=== PATIENT | male | born 1955 ===

== ENCOUNTER 2018-02-01 05:48 | Inpatient (IN) | payer OTHER ==
[~2018-02-01] VITALS: Ht 175.3 cm; Wt 90.7 kg
[2018-02-01] VITALS (11 sets, daily range): BP systolic 113–143; BP diastolic 65–88
[2018-02-01] MEDS ORDERED: Midazolam 2mg/2ml Inj ONE (06:11)
[2018-02-01] MEDS ORDERED: fentaNYL 100 mcg/2 mL IV ONE (06:11)
[2018-02-01] MEDS ORDERED: Propofol 200mg/20ml IV ONE (06:31)
[2018-02-01] MEDS ORDERED: Lidocaine 1% MPF 10mg/ml 5ml ONE ×2 (06:31→08:02)
[2018-02-01] MEDS ORDERED: Ropivacaine 5mg/ml Vial 30ml INJ ONE (06:36)
[2018-02-01] MEDS ORDERED: NKM (06:42)
[2018-02-01] MEDS ORDERED: Bacitracin 50000 Units Vial ONE ×2 (06:42→10:17)
[2018-02-01] MEDS ORDERED: NeoSporin Gu Irrig 1ml Amp IRRIG ONE ×2 (06:42→10:17)
--- NOTE | 2018-02-01 07:12 | Pre-Procedure Note/Attestation ---
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 I attest that, if there was a reasonable possibility of needing a blood transfusion, the patient (or the patient's legal unit support representative) was given the [facility] standardized written summary, pursuant to the [employer] Blood Safety Act ([place] Health and Safety Code # 1645, as amended). I attest that I re-evaluated the patient just prior to the surgery and that there has been no change in the patient's H&P, except as documented below: Jeffery Toney MD Feb 01, 2018 07:12
[2018-02-01] MEDS ORDERED: Ketorolac 30mg Inj ONE (07:30)
[2018-02-01] MEDS ORDERED: LR 1000ml ONE (07:30)
--- NOTE | 2018-02-01 07:39 | Brief Operative Note ---
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
[2018-02-01] MEDS ORDERED: Sodium Chloride 10ml vial INJ ONE (08:02)
--- NOTE | 2018-02-01 08:26 | Anethesia Preoperative Eval ---
Anesthesia Pre-op PMH/ROS General Date of Evaluation: Feb 01, 2018 Time of Evaluation: 06:50 Anesthesiologist: David ASA Score: ASA 2 Mallampati Score Class I : Soft palate, uvula, fauces, pillars visible Class II: Soft palate, uvula, fauces visible Class III: Soft palate, base of uvula visible Class IV: Only hard plate visible Mallampati Classification: Class II Surgeon: Feng Diagnosis: L knee DJD Surgical Procedure: L knee arthroplasty Anesthesia History: none Family History: no anesthesia problems Allergies: Coded Allergies: No Known Allergies (Unverified , 02/01/18) Medications: see eMAR Past Medical History Cardiovascular: Denies: HTN, CAD, ND, valve dz, arrhythmia, other Pulmonary: Denies: asthma, COPD, OTILIA, other Gastrointestinal/Genitourinary: Reports: GERD - mild; Denies: CRI, ESRD, other Neurologic/Psychiatric: Reports: other - chronic pain; Denies: dementia, CVA, depression/anxiety, TIA Endocrine: Denies: DM, hypothyroidism, steroids, other HEENT: Denies: cataract (L), cataract (R), glaucoma, LITTLE SHELL TRIBE (L), LITTLE SHELL TRIBE (R), other Hematology/Immune: Denies: anemia, DVT, bleeding disorder, other Musculoskeletal/Integumentary: Reports: DJD; Denies: OA, RA, DDD, edema, other Other: other - overweight PMH Narrative: as above PSxH Narrative: L knee arthroscopy Anesthesia Pre-op Phys. Exam Physician Exam Last Vital Signs Date Time Temp Pulse Resp B/P (MAP) Pulse Ox O2 Delivery O2 Flow Rate FiO2 02/01/18 06:44 Room Air 02/01/18 06:32 98.6 74 18 126/84 (98) 94 98.6 Constitutional: NAD Neurologic: CN 2-12 intact Cardiovascular: RRR, no M/R/G Respiratory: CTA Gastrointestinal: S/NT/ND Airway Exam Mallampati Score: Class II MO: limited Neck: short ROM: limited Teeth: missing Dentures: no upper, no lower Anesthesia Pre-op A/P Labs see chart Studies Pre-op Studies: EKG - NSR Risk Assessment & Plan Assessment: ASA 2 Plan: SAB vs GA with combined femoral/saphenous nerve block for postoperative pain control Status Change Before Surgery: No Pre-Antibiotics Drug: Ancef 2 gr. Given Within 1 Hr of Incision: Yes Time Given: 08:12 Meek Hernandez MD Feb 01, 2018 08:26
[2018-02-01] MEDS: oxyCONTIN 20mg tab ORAL SCH ×2 (09:00→20:36)
[2018-02-01] MEDS ORDERED: LR 1000ml 1,000 ML IVLG SCH (09:53)
[2018-02-01] MEDS ORDERED: Midazolam 2mg/2ml Inj IVP PRN (10:00)
[2018-02-01] MEDS ORDERED: fentaNYL 100 mcg/2 mL IV PRN (10:00)
[2018-02-01] MEDS ORDERED: Meperidine 50mg/ml Inj(FOR RIGORS ONLY) IV PRN (10:00)
[2018-02-01] MEDS ORDERED: DiphenhydrAMINE 50mg/ml Inj IVP PRN (10:00)
[2018-02-01] MEDS ORDERED: Ketorolac 30mg Inj IV PRN (10:00)
--- NOTE | 2018-02-01 11:42 | Immediate Post-Op Evaluation ---
Immediate Post-Op Evalulation Immediate Post-Op Evalulation Procedure: L Total knee arthroplasty Date of Evaluation: Feb 01, 2018 Time of Evaluation: 11:41 IV Fluids: 1700 Blood Products: none Estimated Blood Loss: 150 Urinary Output: 300 Blood Pressure Systolic: 124 Blood Pressure Diastolic: 86 Pulse Rate: 75 Respiratory Rate: 22 O2 Sat by Pulse Oximetry: 98 Temperature (Fahrenheit): 97.8 Pain Score (1-10): 2 Nausea: No Vomiting: No Complications none Patient Status: reacts, none Hydration Status: adequate Meek Hernandez MD Feb 01, 2018 11:42
--- NOTE | 2018-02-01 11:49 | Operative Note - PDOC ---
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
--- NOTE | 2018-02-01 13:50 | Consultation ---
History of Present Illness General Date patient seen: Feb 01, 2018 Time patient seen: 13:48 Chief Complaint: this is an initial internalmediciane conuslt request by Dr gutierrez. Present Illness Allergies: Coded Allergies: No Known Allergies (Unverified , 02/01/18) Medication History Scheduled No Known Medications* (NKM - No Known Medications*), 0 ., (Reported) Patient History Limited by: other - daought by bed side and the history taken withher help Healthcare decision maker miki castillo() Resuscitation status Full Code Advanced Directive on File No Review of Systems Constitutional: Reports: no symptoms Eye: Reports: no symptoms ENT: Reports: no symptoms Respiratory: Reports: no symptoms Gastrointestinal: Reports: no symptoms Musculoskeletal: Reports: other - has pain Physical Exam General Appearance: WD/WN HEENT: PERRL Neck: other - no jvd Respiratory/Chest: chest wall non-tender Cardiovascular/Chest: normal rate, regular rhythm Abdomen: non tender, soft Extremities: other - drain in place Last 24 Hour Vital Signs Date Time Temp Pulse Resp B/P (MAP) Pulse Ox O2 Delivery O2 Flow Rate FiO2 02/01/18 13:10 97.2 77 20 113/86 98 Nasal Cannula 3 97.2 02/01/18 12:45 74 20 113/86 98 Nasal Cannula 3 02/01/18 12:25 71 20 143/88 98 Simple Mask 8 02/01/18 12:25 97.4 02/01/18 12:00 71 20 135/79 98 Simple Mask 8 02/01/18 11:42 82 20 133/83 98 Simple Mask 8 02/01/18 11:42 208.0 75 22 98 02/01/18 11:37 80 20 124/88 98 Simple Mask 8 02/01/18 11:32 97.4 82 20 136/86 98 Simple Mask 8 97.4 02/01/18 06:44 Room Air 02/01/18 06:32 98.6 74 18 126/84 (98) 94 98.6 Intake and Output 01/31/18 02/01/18 19:00 07:00 # Voids 1 Height (Feet): 5 Height (Inches): 9.00 Weight (Pounds): 200 Medications Current Medications Medications (Trade) Dose Ordered Sig/Anthony Route PRN Reason Start Time Stop Time Status Last Admin Dose Admin Acetaminophen (Tylenol) 650 mg EVERY 6 HOURS PRN ORAL Mild Pain/Temp > 100.5 02/01/18 07:45 03/03/18 07:44 UNV Acetaminophen/ Hydrocodone Bitart (Quentin 5/325) 1 tab Q4H PRN ORAL For Pain 02/01/18 07:45 02/08/18 07:44 UNV Cefazolin Sodium 1 gm/Dextrose 55 ml @ 110 mls/hr EVERY 8 HOURS IV 02/01/18 14:00 02/02/18 06:29 UNV Celecoxib (CeleBREX) 200 mg DAILY ORAL 02/01/18 09:00 03/03/18 08:59 UNV Dextrose/Sodium Chloride 1,000 ml @ 75 mls/hr Q13H IV 02/01/18 07:45 03/03/18 07:44 UNV Diphenhydramine HCl (Benadryl) 25 mg Q15M PRN IVP Itching 02/01/18 10:00 02/01/18 18:00 Docusate Sodium (Colace) 100 mg THREE TIMES A DAY ORAL 02/01/18 09:00 03/03/18 08:59 UNV Enoxaparin Sodium (Lovenox) 30 mg EVERY 12 HOURS SUBQ 02/02/18 09:00 02/16/18 08:59 UNV Fentanyl Citrate (Sublimaze 100 mcg/2 mL) 50 mcg Q10M PRN IV Moderate Pain (Pain Scale 4-6) 02/01/18 10:00 02/01/18 18:00 Hydromorphone HCl (Dilaudid) 0.5 mg Q4H PRN SUBQ Mild Pain (Pain Scale 1-3) 02/01/18 07:45 02/08/18 07:44 UNV Hydromorphone HCl (Dilaudid) 1 mg Q3H PRN SUBQ Moderate Pain (Pain Scale 4-6) 02/01/18 07:45 02/08/18 07:44 UNV Ketorolac Tromethamine (Toradol 30mg) 30 mg Q1H PRN IV Severe Breakthru Pain (>7) 02/01/18 10:00 02/01/18 18:00 Meperidine HCl (Demerol) 25 mg Q15M PRN IV chills 7/12/18 10:00 02/01/18 16:00 02/01/18 12:25 Midazolam HCl (Versed 2mg/2ml vial) 1 mg Q15M PRN IVP For Anxiety 02/01/18 10:00 02/01/18 18:00 Ondansetron HCl (Zofran) 4 mg Q1H PRN IVP Nausea & Vomiting 02/01/18 10:00 02/01/18 18:00 Ondansetron HCl (Zofran) 4 mg Q6H PRN IVP Nausea & Vomiting 02/01/18 07:45 03/03/18 07:44 UNV Oxycodone HCl (OxyCONTIN) 20 mg EVERY 12 HOURS ORAL 02/01/18 09:00 02/08/18 08:59 UNV Temazepam (Restoril) 7.5 mg HSPRN PRN ORAL Insomnia 02/01/18 07:45 02/08/18 07:44 UNV Assessment/Plan Status Narrative s/p left tota knee arthroplasty pt ot dvt prophyalxis pain control follow labs monitor cbc paincontrol perioperative antibioti cprophyalxis.per surgeon. Wander Nunez MD Feb 01, 2018 13:50
[2018-02-01] MEDS ORDERED: Hydromorphone 0.5mg/0.5ml inj SUBQ PRN (15:00)
[2018-02-01] MEDS: D5 1/2NS 1,000 ML IV SCH (16:36)
[2018-02-01] MEDS: ceFAZolin sod 1 GM in D5W 110 ML IV SCH (16:36)
[2018-02-01] MEDS: HYDROmorphone 1mg/ml Carpuject SUBQ PRN (16:42)
[2018-02-01] MEDS: Docusate 100mg cap ORAL SCH (16:45)
[2018-02-01] MEDS: Enoxaparin 30mg Inj SUBQ SCH (20:40)
[2018-02-01] MEDS: Norco 5mg/325mg tab ORAL PRN (23:16)
[2018-02-02] VITALS: BP 106/69
[2018-02-02] MEDS: ceFAZolin sod 1 GM in D5W 110 ML IV SCH ×2 (00:08→08:41)
[2018-02-02 04:00] VITALS: BP_SYST 128; BP_SYST 188; BP_DIAS 68; BP_DIAS 70
[2018-02-02] MEDS: Norco 5mg/325mg tab ORAL PRN ×4 (04:10→18:06)
[2018-02-02] MEDS: D5 1/2NS 1,000 ML IV SCH ×2 (04:11→17:00)
[2018-02-02] MEDS: HYDROmorphone 1mg/ml Carpuject SUBQ PRN (05:43)
[2018-02-02 06:55] LABS: BASOPHILS % (AUTO) 0.5 % (0.0-2.0); EOSINOPHILS % (AUTO) 2.2 % (0.0-3.0); HEMATOCRIT 35.6 % (42.0-52.0); HEMOGLOBIN 11.8 G/DL (14.2-18.0); MEAN CORPUSCULAR VOLUME 86 FL (80-99); MONOCYTES % (AUTO) 11.5 % (1.0-10.0); NEUTROPHILS % (AUTO) 64.9 % (45.0-75.0); PLATELET COUNT 157 K/UL (150-450); RED BLOOD COUNT 4.12 M/UL (4.70-6.10); RED CELL DISTRIBUTION WIDTH 12.5 % (11.6-14.8); WHITE BLOOD COUNT 7.8 K/UL (4.8-10.8)
[2018-02-02 08:00] VITALS: BP 128/78
[2018-02-02] MEDS: oxyCONTIN 20mg tab ORAL SCH ×2 (08:42→20:33)
[2018-02-02] MEDS: celeBREX 200mg Cap **SURGERY PATIENTS ONLY ORAL SCH (08:42)
[2018-02-02] MEDS: Docusate 100mg cap ORAL SCH ×3 (08:42→18:05)
[2018-02-02] MEDS: Enoxaparin 30mg Inj SUBQ SCH ×2 (09:35→20:35)
[2018-02-02 12:00] VITALS: BP 124/69
--- NOTE | 2018-02-02 13:45 | 48 Hour Post Anesthesia Eval ---
Post Anesthesia Evaluation Procedure: L Total knee arthroplasty Date of Evaluation: Feb 02, 2018 Time of Evaluation: 06:20 Blood Pressure Systolic: 128 0: 70 Pulse Rate: 86 Respiratory Rate: 20 Temperature (Fahrenheit): 98.3 O2 Sat by Pulse Oximetry: 96 Airway: patent Nausea: No Vomiting: No Pain Intensity: 0 Hydration Status: adequate Cardiopulmonary Status: at baseline Mental Status/LOC: patient returned to baseline Post-Anesthesia Complications: 0 Follow-up care needed: N/A - further care as per primary team Kina Faulkner MD Feb 02, 2018 13:45
[2018-02-02] MEDS ORDERED: Tubing IV Secondary IV ONE (14:08)
[2018-02-02] MEDS ORDERED: D5 1/2NS 1000ml IV ONE (14:08)
--- NOTE | 2018-02-02 15:33 | Orthopedic Progress Note ---
Orthopedic - Progress Note Subjective Symptoms: c/o post-op knee pain Additional Comments Pain controlled most of time with narcotics, pending Ice/cold unit Objective Vital Signs Last 24 Hour Vital Signs Date Time Temp Pulse Resp B/P (MAP) Pulse Ox O2 Delivery O2 Flow Rate FiO2 02/02/18 13:45 208.9 86 20 96 02/02/18 12:00 98.7 94 20 124/69 (87) 97 98.7 02/02/18 09:00 Room Air 02/02/18 08:00 99.0 95 20 128/78 (95) 96 99.0 02/02/18 06:13 99.0 02/02/18 05:43 99.0 02/02/18 05:09 99.0 02/02/18 04:10 99.0 02/02/18 04:00 98.3 86 20 128/70 (89) 96 98.3 02/02/18 00:00 99.0 82 18 106/69 (81) 95 99.0 02/01/18 23:16 99.5 02/01/18 21:15 Room Air 02/01/18 20:36 99.5 02/01/18 20:00 96.7 103 17 122/65 (84) 95 96.7 02/01/18 16:00 99.5 90 18 118/70 (86) 94 99.5 I&O Intake and Output 02/01/18 02/02/18 19:00 07:00 Intake Total 3060 ml 77473 ml Output Total 1575 ml 1450 ml Balance 1485 ml 88969 ml Intake Oral 800 ml 800 ml IV Total 2260 ml 94018 ml Output Urine Total 700 ml 1250 ml Drainage Total 725 ml 200 ml Estimated Blood Loss 150 ml Wound: dry, intact Drains: hemovac Neuro Status: normal Vascular Status: normal Assessment Post-op Diagnosis Same Procedure Performed Left Total Knee Arthroplasty Plan Plan: PT, d/c antibiotics, continue drain Additional Comments Patient requires closer monitoring of pain and use of ice more frequently Jeffery Toney MD Feb 02, 2018 15:33
[2018-02-02] MEDS ORDERED: HYDROmorphone 1mg/ml Carpuject IVP PRN (15:45)
[2018-02-02 16:00] VITALS: BP 126/80
[2018-02-02 20:00] VITALS: BP 131/85
--- NOTE | 2018-02-02 23:37 | General Progress Note ---
Assessment/Plan Status Narrative s/p totlaknee arthroplasty doing well pt ot dvt prophyalxis eating well dc iv fluid Assessment/Plan monitor levi occupational therpay physicla therpay will follow Subjective Date patient seen: Feb 02, 2018 Time patient seen: 23:36 Constitutional: Reports: no symptoms HEENT: Reports: no symptoms Cardiovascular: Reports: no symptoms Respiratory: Reports: no symptoms Allergies: Coded Allergies: No Known Allergies (Unverified , 02/01/18) Objective Last 24 Hour Vital Signs Date Time Temp Pulse Resp B/P (MAP) Pulse Ox O2 Delivery O2 Flow Rate FiO2 02/02/18 21:32 99.0 02/02/18 20:33 99.0 02/02/18 20:00 99.8 110 18 131/85 (100) 93 99.8 02/02/18 16:00 99.0 91 20 126/80 (95) 93 99.0 02/02/18 13:45 208.9 86 20 96 02/02/18 12:00 98.7 94 20 124/69 (87) 97 98.7 02/02/18 09:00 Room Air 02/02/18 08:00 99.0 95 20 128/78 (95) 96 99.0 02/02/18 06:13 99.0 02/02/18 05:43 99.0 02/02/18 05:09 99.0 02/02/18 04:10 99.0 02/02/18 04:00 98.3 86 20 128/70 (89) 96 98.3 02/02/18 00:00 99.0 82 18 106/69 (81) 95 99.0 Intake and Output 02/01/18 02/02/18 19:00 07:00 Intake Total 3060 ml 52855 ml Output Total 1575 ml 1450 ml Balance 1485 ml 62804 ml Intake Oral 800 ml 800 ml IV Total 2260 ml 67930 ml Output Urine Total 700 ml 1250 ml Drainage Total 725 ml 200 ml Estimated Blood Loss 150 ml Laboratory Tests 02/02/18 05:00: White Blood Count 7.8, Red Blood Count 4.12L, Hemoglobin 11.8L, Hematocrit 35.6L , Mean Corpuscular Volume 86, Mean Corpuscular Hemoglobin 28.5, Mean Corpuscular Hemoglobin Concent 33.0, Red Cell Distribution Width 12.5, Platelet Count 157, Mean Platelet Volume 6.8, Neutrophils (%) (Auto) 64.9, Lymphocytes (% ) (Auto) 21.0, Monocytes (%) (Auto) 11.5H, Eosinophils (%) (Auto) 2.2, Basophils (%) (Auto) 0.5 Height (Feet): 5 Height (Inches): 9.00 Weight (Pounds): 200 General Appearance: WD/WN EENT: PERRL/EOMI Neck: other - NO JVD Cardiovascular: normal rate, regular rhythm Respiratory/Chest: lungs clear Abdomen: non tender, soft Extremities: other - WRAPPED Wander Nunez MD Feb 02, 2018 23:37
[2018-02-03] VITALS: BP 131/84
[2018-02-03] MEDS: HYDROmorphone 1mg/ml Carpuject SUBQ PRN ×4 (01:21→21:26)
[2018-02-03 04:00] VITALS: BP 121/81
--- NOTE | 2018-02-03 04:01 | Operative Note - Dictated ---
DATE OF OPERATION: 02/01/2018 PREOPERATIVE DIAGNOSIS: Left knee end-stage arthrosis. POSTOPERATIVE DIAGNOSIS: Left knee end-stage arthrosis with a small extension lag. PROCEDURE: 1. Left total knee arthroplasty using a [employer] System (cruciate sacrificing: Size 7 femur, size 5 tibial tray, and 9 mm poly insert and 29 mm patella, all components were cemented. 2. Release of extension contracture. 3. Multi-layered wound closure measuring 22 cm. 4. Placement of nonbiodegradable implant SURGEON: Jeffery Toney M.D. LOCK CORNER MACHINE OPERATOR SURGEON: Shayne Fox M.D. ANESTHESIOLOGIST: Meek Hernandez M.D., spinal as well as obturator block. ESTIMATED BLOOD LOSS: Less than 50 mL. TOURNIQUET TIME: 120 minutes. DRAINS: Medium Hemovac x1. COMPLICATIONS: None. INDICATION FOR PROCEDURE: The patient is a 62-year-old male who sustained a work-related injury to his left knee. He failed conservative treatments including injections, physical therapy, etc. Due to continued pain and limitations in his activities of daily living, it was felt that he would be best served with total knee arthroplasty. The risks, benefits and alternatives to surgery were discussed with the patient. Risks including, but not limited to infection, nerve damage, limb loss, blood clots, stiffness, need for revision surgery, continued pain or worsening symptoms, etc., were reviewed. The patient did understand the risks and wished to proceed. OPERATIVE FINDINGS: Examination under anesthesia demonstrated Left knee range of motion: 5 to 110 degrees and the knee was stable with varus and valgus stress. However, there was a +1 Pablo test and +1 anterior drawer test, thus a total knee was indicated. Upon examination of the articular surface, there was severe damage to the medial compartment as well as areas of the Central lateral femoral condyle and grade 2 to 4 patellar trochlear groove. Thus, a total knee arthroplasty was the best option for the patient. At all times, neurovascular structures and the ligaments were protected. DESCRIPTION OF PROCEDURE: The patient was identified by himself in the preoperative area. The left lower extremity was marked as correct operative site. The patient was then taken down to the operating room and placed in supine position. The patient underwent adequate anesthesia as well as obturator block. He received 2 g of Ancef IV. Next, the left lower extremity was prepped and draped in the usual sterile fashion manner. Time-out was performed confirming the left lower extremity as the correct operative site. Next, a standard paramedian incision was made as well as arthrotomy. Next, the patella was then everted. The Intramedullary drill was used to allow for intramedullary femoral measurement guide and cutting jig. The distal femoral cutting block was pinned into correct position and distal femoral cut was then made. Next, the femoral sizing jig was placed on the distal femur and a size 7 was noted to be the best fit without notching or removing excess posterior femoral condylar bone. The size 7, 4 in 1, femoral cutting block was inserted and pinned into place. Next the anterior and posterior cuts and chamfer cuts were then made. A trial of 7 was placed on the femur and it fit well. Next, attention was turned to the patella where measured resection would allow for a 9 mm thickness poly patella. The diameter was then measured and it was noted that a 29mm patella was the best fit. Next, the patellar articular surface was resected to the appropriated depth. Once it was confirmed that the patella was flat and smooth, the 3 peg holes were then drilled and the trial patella was then placed. The patella was noted to track centrally within the femoral trial throughout the full ROM. Next, attention was then turned to the tibia where complete resection of ACL and PCL were performed as well as medial and lateral meniscus. Next the tibia was then been brought forward and the extramedullary cutting guide was then placed on the tibia, measuring approximately 9 mm off the less involved lateral side. Next, slope and varus and valgus alignment was checked and aligned. After confirmation of proper alignment, the tibial resection was then performed. A size 5 trial was then placed and noted to fit well without overhanging. Next, it was then rotated to medial tubercle to ensure accurate patellofemoral tracking. This was then pinned into place again. The femoral trial was placed as well as the patella, range of motion was then tested. The patient came into full extension, was stable with 30, 60, 90, and 120 degrees of flexion with the central patella tracking throughout. After confirming the components were the exact fit and alignment, all trial components were then removed. The knee was then thoroughly irrigated and dried and then cement was then packed into the tibial surface as well as the femoral surface of the patella. Next, the components were then inserted beginning with the tibia, which was completely seated under direct vision. All excess cement was removed. Next, the femoral component was then inserted and fully seated, extra cement removed and a final polyethylene was inserted under direct vision and final poly patella was then cemented into place. Again, all extra cement was removed. The skin tested and noted to have full extension with slight anatomic valgus and it was stable with 0, 30, 60, 90, and 120 degrees of flexion with central patella tracking throughout. Next, the tourniquet was released and meticulous hemostasis was achieved. Sequential layered closure was then performed after the medium hemovac drain was placed. Beginning with the deep layers including capusule and quadriceps tendon, the layered closure was performed. Subcuticular stitches were performed for skin closure and Steri-Strips applied and dry sterile dressings. The patient was then awoken from the anesthesia and taken to PACU. There were no complications. Jeffery Toney M.D. DR: JOE JOB#: [id number] CC: Shayne Fox M.D. MTDValorie
[2018-02-03 07:57] LABS: BASOPHILS % (AUTO) 0.8 % (0.0-2.0); EOSINOPHILS % (AUTO) 1.3 % (0.0-3.0); HEMATOCRIT 35.8 % (42.0-52.0); HEMOGLOBIN 11.7 G/DL (14.2-18.0); LYMPHOCYTES % (AUTO) 15.3 % (20.0-45.0); MEAN CORPUSCULAR VOLUME 85 FL (80-99); MONOCYTES % (AUTO) 10.8 % (1.0-10.0); NEUTROPHILS % (AUTO) 71.9 % (45.0-75.0); PLATELET COUNT 154 K/UL (150-450); RED CELL DISTRIBUTION WIDTH 12.1 % (11.6-14.8); WHITE BLOOD COUNT 8.5 K/UL (4.8-10.8)
[2018-02-03 08:00] VITALS: BP 118/80
[2018-02-03] MEDS: Docusate 100mg cap ORAL SCH ×3 (09:00→18:00)
[2018-02-03] MEDS: celeBREX 200mg Cap **SURGERY PATIENTS ONLY ORAL SCH (10:11)
[2018-02-03] MEDS: oxyCONTIN 20mg tab ORAL SCH ×2 (10:11→21:00)
[2018-02-03] MEDS: Enoxaparin 30mg Inj SUBQ SCH ×2 (10:12→21:05)
--- NOTE | 2018-02-03 11:46 | General Progress Note ---
Assessment/Plan Assessment/Plan s/p tkr pt ot dvt prophyalixs pain control Subjective Date patient seen: Feb 03, 2018 Time patient seen: 11:45 Constitutional: Reports: no symptoms HEENT: Reports: no symptoms Allergies: Coded Allergies: No Known Allergies (Unverified , 02/01/18) Objective Last 24 Hour Vital Signs Date Time Temp Pulse Resp B/P (MAP) Pulse Ox O2 Delivery O2 Flow Rate FiO2 02/03/18 05:57 99.4 02/03/18 05:27 99.4 02/03/18 04:00 97.9 108 18 121/81 (94) 97 97.9 02/03/18 01:21 99.4 02/03/18 00:00 99.4 100 18 131/84 (100) 93 99.4 02/02/18 21:32 99.0 02/02/18 21:00 Room Air 02/02/18 20:33 99.0 02/02/18 20:00 99.8 110 18 131/85 (100) 93 99.8 02/02/18 16:00 99.0 91 20 126/80 (95) 93 99.0 02/02/18 13:45 208.9 86 20 96 02/02/18 12:00 98.7 94 20 124/69 (87) 97 98.7 Intake and Output 02/02/18 02/03/18 19:00 07:00 Intake Total 990 ml 1280 ml Output Total 100 ml 730 ml Balance 890 ml 550 ml Intake Oral 990 ml 1280 ml Output Urine Total 650 ml Drainage Total 100 ml 80 ml # Voids 3 3 Laboratory Tests 02/03/18 07:10: White Blood Count 8.5, Red Blood Count 4.20L, Hemoglobin 11.7L, Hematocrit 35.8L , Mean Corpuscular Volume 85, Mean Corpuscular Hemoglobin 27.9, Mean Corpuscular Hemoglobin Concent 32.7, Red Cell Distribution Width 12.1, Platelet Count 154, Mean Platelet Volume 6.9, Neutrophils (%) (Auto) 71.9, Lymphocytes (% ) (Auto) 15.3L, Monocytes (%) (Auto) 10.8H, Eosinophils (%) (Auto) 1.3, Basophils (%) (Auto) 0.8 Height (Feet): 5 Height (Inches): 9.00 Weight (Pounds): 200 General Appearance: WD/WN Cardiovascular: normal rate, regular rhythm, no JVD Respiratory/Chest: lungs clear Abdomen: non tender, soft Extremities: other - no edema Wander Nunez MD Feb 03, 2018 11:46
[2018-02-03 12:00] VITALS: BP_SYST 104; BP_SYST 139; BP_DIAS 69; BP_DIAS 85
[2018-02-03 16:00] VITALS: BP 120/81
[2018-02-03 20:00] VITALS: BP 119/80
--- NOTE | 2018-02-03 21:56 | Orthopedic Progress Note ---
Orthopedic - Progress Note Subjective Symptoms: c/o post-op knee pain, improved Additional Comments Pain better controlled, denies any LE parasthesias Objective Vital Signs Last 24 Hour Vital Signs Date Time Temp Pulse Resp B/P (MAP) Pulse Ox O2 Delivery O2 Flow Rate FiO2 02/03/18 21:00 Room Air 02/03/18 20:00 99.2 98 18 119/80 (93) 94 99.2 02/03/18 16:00 97.3 90 18 120/81 (94) 94 97.3 02/03/18 12:00 97.4 89 20 104/69 (81) 94 97.4 02/03/18 09:00 Room Air 02/03/18 08:00 97.7 107 20 118/80 (93) 97 97.7 02/03/18 05:57 99.4 02/03/18 05:27 99.4 02/03/18 04:00 97.9 108 18 121/81 (94) 97 97.9 02/03/18 01:21 99.4 02/03/18 00:00 99.4 100 18 131/84 (100) 93 99.4 I&O Intake and Output 02/02/18 02/03/18 19:00 07:00 Intake Total 990 ml 1280 ml Output Total 100 ml 730 ml Balance 890 ml 550 ml Intake Oral 990 ml 1280 ml Output Urine Total 650 ml Drainage Total 100 ml 80 ml # Voids 3 3 Wound: clean, dry, intact Drains: hemovac Neuro Status: normal Vascular Status: normal Additional Comments Left calf soft and non-tender, Neg Haris's and no palpable cord....Hemovac > 80cc in <8hr, plan to d/c in am if less than 50cc Assessment Post-op Diagnosis Same Procedure Performed Left Total Knee Arthroplasty Additional Comments Patient cont to improve, still pending delivery of Cold unit and arrangement of HOME HEALTH and PT - anticipate d/c home Mon AM Plan Plan: PT, continue drain Feng,Jeffery Zapien MD Feb 03, 2018 21:56
[2018-02-03] MEDS: Norco 5mg/325mg tab ORAL PRN (23:34)
[2018-02-04] VITALS: BP 123/69
[2018-02-04] MEDS: HYDROmorphone 1mg/ml Carpuject SUBQ PRN ×6 (02:03→23:47)
[2018-02-04 04:00] VITALS: BP 119/75
[2018-02-04 06:58] LABS: EOSINOPHILS % (AUTO) 4.4 % (0.0-3.0); HEMATOCRIT 34.2 % (42.0-52.0); HEMOGLOBIN 11.3 G/DL (14.2-18.0); LYMPHOCYTES % (AUTO) 19.1 % (20.0-45.0); MEAN CORPUSCULAR VOLUME 86 FL (80-99); MONOCYTES % (AUTO) 8.5 % (1.0-10.0); PLATELET COUNT 165 K/UL (150-450); RED BLOOD COUNT 3.99 M/UL (4.70-6.10); WHITE BLOOD COUNT 7.5 K/UL (4.8-10.8)
[2018-02-04 08:00] VITALS: BP 114/75
[2018-02-04] MEDS: Docusate 100mg cap ORAL SCH ×3 (08:28→18:29)
[2018-02-04] MEDS: celeBREX 200mg Cap **SURGERY PATIENTS ONLY ORAL SCH (08:28)
[2018-02-04] MEDS: oxyCONTIN 20mg tab ORAL SCH ×2 (08:29→20:14)
[2018-02-04] MEDS: Enoxaparin 30mg Inj SUBQ SCH ×2 (08:31→20:11)
[2018-02-04 12:00] VITALS: BP 120/72
--- NOTE | 2018-02-04 13:44 | Orthopedic Progress Note ---
Orthopedic - Progress Note Subjective Symptoms: improved Additional Comments Pt continuing to improve, pain well controlled, and weaning off IV/IM pain meds today. Denies any LE parasthesia Objective Vital Signs Last 24 Hour Vital Signs Date Time Temp Pulse Resp B/P (MAP) Pulse Ox O2 Delivery O2 Flow Rate FiO2 02/04/18 12:21 98.2 02/04/18 12:00 98.2 88 17 120/72 (88) 94 98.2 02/04/18 11:51 98.7 02/04/18 09:28 98.7 02/04/18 08:59 Room Air 02/04/18 08:29 98.7 02/04/18 08:00 96.2 97 18 114/75 (88) 100 96.2 02/04/18 04:00 98.7 93 17 119/75 (90) 94 98.7 02/04/18 00:00 98.2 86 19 123/69 (87) 95 98.2 02/03/18 21:00 Room Air 02/03/18 20:00 99.2 98 18 119/80 (93) 94 99.2 02/03/18 16:00 97.3 90 18 120/81 (94) 94 97.3 I&O Intake and Output 02/03/18 02/04/18 19:00 07:00 Intake Total 280 ml 500 ml Output Total 60 ml Balance 220 ml 500 ml Intake Oral 280 ml 500 ml Drainage Total 60 ml # Voids 3 2 Wound: clean, dry, intact Drains: none Neuro Status: normal Vascular Status: normal Assessment Post-op Diagnosis Same Procedure Performed Left Total Knee Arthroplasty Plan Plan: PT, pain management, d/c drain Additional Comments Plan to d/c home tomorrow after PT....needs confirmation of HHPT and Cold unit and meds prior to d/c Jeffery Toney MD Feb 04, 2018 13:44
[2018-02-04] MEDS ORDERED: HYDROcodone/Acetamin 10/325 tab ORAL PRN (13:45)
--- NOTE | 2018-02-04 13:49 | Discharge Summary ---
Discharge Summary Hospital Course Date of Admission Feb 01, 2018 at 05:48 Date of Discharge Feb 05, 2018 Admitting Diagnosis End stage OA of left knee Reason for Hospitalization: Pt underwent a Left Total Knee Arthroplasty of day of admission HPI Cal Adams is a 62 year old male who was admitted on Feb 01, 2018 at 05:48 for End Stage Of Knee Osteoarthritis Consultations Internal Medicine - follow BP, etc Procedures Left Total Knee Arthroplasty Hospital Course Patient underwent an uneventful left total knee arthroplasty on date of admission. After the procedure, he was transferred to the Ortho floor and began PT the following day. Each day, the patient progressed and was able to meet discharge requirements by POD #4. He did not require a blood transfusion and there were not hospital complications or events. The patient was discharged home with HHPT, CPM, Cold unit, Lovenox, and Pain meds. he will follow up in clinic in 10-14 days, or sooner if any issues. Discharge Condition Upon Discharge: improving Discharge Disposition Patient was discharged to home Discharge Diagnoses: (1) Status post total knee replacement, left Jeffery Toney MD Feb 04, 2018 13:49
--- NOTE | 2018-02-04 15:35 | General Progress Note ---
Assessment/Plan Assessment/Plan venou sdouiplex r.o dvt s/p tkr pt ot dvt prophyalixs pain control Subjective Date patient seen: Feb 04, 2018 Time patient seen: 15:33 Constitutional: Reports: no symptoms HEENT: Reports: no symptoms Cardiovascular: Reports: no symptoms Allergies: Coded Allergies: No Known Allergies (Unverified , 02/01/18) Subjective s/p TKR doing better usign ice pack ambulating well Objective Last 24 Hour Vital Signs Date Time Temp Pulse Resp B/P (MAP) Pulse Ox O2 Delivery O2 Flow Rate FiO2 02/04/18 12:21 98.2 02/04/18 12:00 98.2 88 17 120/72 (88) 94 98.2 02/04/18 11:51 98.7 02/04/18 09:28 98.7 02/04/18 08:59 Room Air 02/04/18 08:29 98.7 02/04/18 08:00 96.2 97 18 114/75 (88) 100 96.2 02/04/18 04:00 98.7 93 17 119/75 (90) 94 98.7 02/04/18 00:00 98.2 86 19 123/69 (87) 95 98.2 02/03/18 21:00 Room Air 02/03/18 20:00 99.2 98 18 119/80 (93) 94 99.2 02/03/18 16:00 97.3 90 18 120/81 (94) 94 97.3 Intake and Output 02/03/18 02/04/18 19:00 07:00 Intake Total 280 ml 500 ml Output Total 60 ml Balance 220 ml 500 ml Intake Oral 280 ml 500 ml Drainage Total 60 ml # Voids 3 2 Laboratory Tests 02/04/18 06:10: White Blood Count 7.5, Red Blood Count 3.99L, Hemoglobin 11.3L, Hematocrit 34.2L , Mean Corpuscular Volume 86, Mean Corpuscular Hemoglobin 28.4, Mean Corpuscular Hemoglobin Concent 33.2, Red Cell Distribution Width 12.0, Platelet Count 165, Mean Platelet Volume 6.8, Neutrophils (%) (Auto) 67.0, Lymphocytes (% ) (Auto) 19.1L, Monocytes (%) (Auto) 8.5, Eosinophils (%) (Auto) 4.4H, Basophils (%) (Auto) 1.0 Height (Feet): 5 Height (Inches): 9.00 Weight (Pounds): 200 Neck: supple Cardiovascular: normal rate, regular rhythm, no gallop/murmur Respiratory/Chest: lungs clear Extremities: other - has erythema around the knee Wander Nunez MD Feb 04, 2018 15:35
[2018-02-04 16:00] VITALS: BP 130/86
[2018-02-04 20:00] VITALS: BP 121/81
[2018-02-05] VITALS: BP 136/83
[2018-02-05] MEDS: HYDROmorphone 1mg/ml Carpuject SUBQ PRN (03:32)
[2018-02-05] MEDS: Norco 5mg/325mg tab ORAL PRN ×2 (03:37→13:55)
[2018-02-05 04:00] VITALS: BP 131/58
[2018-02-05] MEDS: Docusate 100mg cap ORAL SCH ×2 (07:53→13:55)
[2018-02-05] MEDS: celeBREX 200mg Cap **SURGERY PATIENTS ONLY ORAL SCH (07:54)
[2018-02-05] MEDS: oxyCONTIN 20mg tab ORAL SCH (07:54)
[2018-02-05] MEDS: Enoxaparin 30mg Inj SUBQ SCH (07:57)
[2018-02-05 08:00] VITALS: BP 134/76
[2018-02-05] MEDS ORDERED: HYDROCODON-ACE1 EA13 ORAL (11:01)
[2018-02-05] MEDS ORDERED: IBUPROFEN800 M1 PO (11:07)
[2018-02-05] MEDS ORDERED: LOVENOX40 MG/0.4 SUBQ (11:09)
--- NOTE | 2018-02-05 11:11 | General Progress Note ---
Assessment/Plan Assessment/Plan s/p tkr perioperative blood loss perioperative blood loss anemia r/O for DVt doing well dc home with [facility] Subjective Date patient seen: Feb 05, 2018 Time patient seen: 11:09 Constitutional: Reports: no symptoms HEENT: Reports: no symptoms Cardiovascular: Reports: no symptoms Respiratory: Reports: no symptoms Allergies: Coded Allergies: No Known Allergies (Unverified , 02/01/18) Subjective doing better lesss swelling Objective Last 24 Hour Vital Signs Date Time Temp Pulse Resp B/P (MAP) Pulse Ox O2 Delivery O2 Flow Rate FiO2 02/05/18 08:56 Room Air 02/05/18 08:53 98.1 02/05/18 08:00 98.1 101 20 134/76 (95) 99 98.1 02/05/18 07:54 97.8 02/05/18 04:00 97.8 84 18 131/58 (82) 98 97.8 02/05/18 00:00 98.0 93 19 136/83 (100) 95 98.0 02/04/18 21:00 Room Air 02/04/18 20:00 99.7 100 18 121/81 (94) 95 99.7 02/04/18 16:46 98.2 02/04/18 16:16 98.2 02/04/18 16:00 97.5 91 18 130/86 (101) 96 97.5 02/04/18 12:00 98.2 88 17 120/72 (88) 94 98.2 02/04/18 11:51 98.7 Intake and Output 02/04/18 02/05/18 19:00 07:00 Intake Total 1020 ml 480 ml Balance 1020 ml 480 ml Intake Oral 1020 ml 480 ml # Voids 3 2 # Bowel Movements 1 Height (Feet): 5 Height (Inches): 9.00 Weight (Pounds): 200 Wander Nunez MD Feb 05, 2018 11:11
--- NOTE | 2018-02-05 11:18 | Discharge Instructions ---
Discharge Instructions Discharge Instructions Follow up with: [facility] in 10-14 days Call MD/Return to Hospital if: fever, redness, swelling, etc. Services at Discharge: physical therapy, outpatient therapy, other Diet: regular Resume Normal Activity?: Yes Activity: okay to shower, up w/ walker Pneumonia Vaccine: vaccine not indicated Influenza Vaccine (Apr to Sep): pt rcvd vaccine prior to this visit For Surgical Patients Clean and Dry: surgical site Dressing Care: keep dry and clean Elevate: left leg with pillow May shower: Yes Contact your physician for: bleeding, pain, tenderness, redness, swelling, yellowish discharge in the op. site For Congestive Heart Failure Reminder Report to your physician any weight gain of 5 pounds or more in one week. Jeffery Toney MD Feb 05, 2018 11:18
[2018-02-05 12:00] VITALS: BP 125/76
[2018-02-05] MEDS ORDERED: HYDROcodone/Acetamin 10/325 tab ORAL SCH (16:33)
== END 2018-02-05 16:55 | disposition home health service (06) | DRG 470 ==
LOC: SDSOVERFLO 05:48 → 3E 13:20
PROC: 0SRD0J9 Replacement of Left Knee Joint with Synthetic Substitute, Cemented, Open Approach (ICD-10-PCS; principal; 2018-02-01 07:00)
DX: M17.12 Unilateral primary osteoarthritis, left knee (principal); D64.9 Anemia, unspecified
CPT/HCPCS: 36415; 85025; 86850; 86900; 86901; 87081; 93970; 94003; 94150; J2250